=== PATIENT | female | born 1945 | race Caucasian/White ===

== ENCOUNTER → 2018-03-25 | Outpatient (CLI) | payer MEDICARE, OTHER ==
[~2018-03-25] MED LIST: Duoneb 2.5-0.5 M3 ML INH; FLUO.05TO TOP; GABA300 PO; LEVO750 PO; LISHYD1012 PO; LISI5 PO; METPRE4DP PO; SULF500A PO
== END | disposition home or self-care (01) ==
LOC: LAB EV 12:13 → LAB SHORT 12:13
DX: R07.0 Pain in throat (principal)
CPT/HCPCS: 87070

== ENCOUNTER 2019-07-15 11:23 | Day surgery (SDC) | payer MEDICARE, OTHER ==
[~2019-07-15] VITALS: Ht 167.6 cm; Wt 100.8 kg
[~2019-07-15 11:23] MED LIST changes: +ALLEGRA ALLERG180 MG PO; +BENZ100A PO; +FOLI1 PO; +Flonase 0.05% N16 GM; +HYDCHL25 PO; +LOSA25 PO; +TERB250 PO
== END 2019-07-15 14:30 | disposition home or self-care (01) ==
LOC: ORSCSDS 11:23
PROVIDERS: Internal Medicine Gastroenterology
PROC: 0DBH8ZX Excision of Cecum, Via Natural or Artificial Opening Endoscopic, Diagnostic (ICD-10-PCS; principal; 2019-07-15 12:45)
PROC: 0DBN8ZX Excision of Sigmoid Colon, Via Natural or Artificial Opening Endoscopic, Diagnostic (ICD-10-PCS; principal; 2019-07-15 12:45)
PROC: 0DBL8ZX Excision of Transverse Colon, Via Natural or Artificial Opening Endoscopic, Diagnostic (ICD-10-PCS; principal; 2019-07-15 12:45)
PROC: 0DBP8ZX Excision of Rectum, Via Natural or Artificial Opening Endoscopic, Diagnostic (ICD-10-PCS; principal; 2019-07-15 12:45)
PROC: 0DBE8ZX Excision of Large Intestine, Via Natural or Artificial Opening Endoscopic, Diagnostic (ICD-10-PCS; principal; 2019-07-15 12:45)
DX: K62.5 Hemorrhage of anus and rectum (principal); D12.0 Benign neoplasm of cecum; D12.3 Benign neoplasm of transverse colon; D12.5 Benign neoplasm of sigmoid colon; K62.1 Rectal polyp; K64.8 Other hemorrhoids; K64.4 Residual hemorrhoidal skin tags; K51.20 Ulcerative (chronic) proctitis without complications; I10 Essential (primary) hypertension; G47.33 Obstructive sleep apnea (adult) (pediatric); Z87.891 Personal history of nicotine dependence; E66.9 Obesity, unspecified; Z68.35 Body mass index [BMI] 35.0-35.9, adult; Z79.899 Other long term (current) drug therapy
CPT/HCPCS: 88305; J2704; J7120

== ENCOUNTER 2019-08-08 10:56 | Emergency (ER) | payer MEDICARE, OTHER ==
[~2019-08-08] VITALS: Ht 165.1 cm; Wt 108.9 kg
== END 2019-08-08 12:14 | disposition home or self-care (01) ==
LOC: ER 10:56
DX: S09.90XA Unspecified injury of head, initial encounter (principal); S43.401A Unspecified sprain of right shoulder joint, initial encounter; W07.XXXA Fall from chair, initial encounter; Z88.0 Allergy status to penicillin; Z88.1 Allergy status to other antibiotic agents; Z79.899 Other long term (current) drug therapy; I10 Essential (primary) hypertension; Z87.891 Personal history of nicotine dependence
CPT/HCPCS: 70450; 73030; 99284-25

== ENCOUNTER 2019-08-10 08:07 | Observation (INO) | payer MEDICARE, OTHER ==
[~2019-08-10] VITALS: Ht 165.1 cm; Wt 105.8 kg
[2019-08-10 08:27] LABS: BASOPHILS ABSOLUTE AUTO 0.07 K/mm3 (0.00-0.23); BASOPHILS PERCENT AUTO 1 % (0-2); EOSINOPHILS ABSOLUTE AUTO 0.08 K/mm3 (0.00-0.68); EOSINOPHILS PERCENT AUTO 1 % (0-6); Hematocrit 41.8 % (33.0-51.0); Hemoglobin 13.6 g/dL (11.5-16.0); IMMATURE GRAN ABSOLUTE AUTO 0.17 K/mm3 (0.00-0.10); IMMATURE GRAN PERCENT AUTO 1 % (0-1); LYMPHOCYTES PERCENT AUTO 13 % (21-46); MONOCYTES ABSOLUTE AUTO 0.71 K/mm3 (0.16-1.47); MONOCYTES PERCENT AUTO 6 % (4-13); Mean Corpuscular HGB 30.7 pg (26.0-34.0); Mean Corpuscular HGB Conc 32.5 g/dL (31.5-36.5); Mean Corpuscular Volume 94 fL (80-100); Mean Platelet Volume 9.9 fL (9.1-12.4); NEUTROPHILS ABSOLUTE AUTO 10.15 K/mm3 (1.96-9.15); NEUTROPHILS PERCENT AUTO 79 % (41-73); Platelet Count 235 K/mm3 (150-400); RDW Coefficient Variation 12.9 % (11.7-14.2); RDW Standard Deviation 45.1 fL (35.1-46.3); Red Blood Cell Count 4.43 M/mm3 (3.80-5.20); White Blood Cell Count 12.88 K/mm3 (4.00-11.30)
[2019-08-10 08:45] LABS: Alanine Aminotransfer (ALT/SGP 16 U/L (12-78); Albumin, Blood 3.8 g/dL (3.4-5.0); Alk Phos 129 U/L (50-136); Anion Gap 12 mmol/L (6-16); Aspartate Aminotrans (AST/SGOT 33 U/L (12-37); Bilirubin, Total 0.6 mg/dL (0.1-1.0); Blood Urea Nitrogen 14 mg/dL (8-24); Bun/Creatinine Ratio 21.1 (12.0-20.0); CO2, Blood 19 mmol/L (21-32); Calcium, Blood 9.4 mg/dL (8.5-10.1); Chloride, Blood 109 mmol/L (98-108); Creatinine, Blood 0.66 mg/dL (0.40-1.00); Globulin, Blood 3.7 g/dL (2.2-4.0); Glomerular Filtration Rate >60 (60-); Glucose, Blood 216 mg/dL (70-99); Potassium, Blood 3.4 mmol/L (3.5-5.5); Sodium, Blood 140 mmol/L (136-145); Total Protein, Blood 7.5 g/dL (6.4-8.2)
[2019-08-10 08:56] LABS: International Normalized Ratio 0.97; Prothrombin Time Results 10.3 Sec (9.7-11.5)
[2019-08-10] MEDS ORDERED: TERB250 PO (09:19)
[2019-08-10] MEDS ORDERED: TIZA4 PO (09:20)
[2019-08-10] MEDS ORDERED: Azulfidine500 M1 PO (10:45)
[2019-08-10] MEDS ORDERED: Neilmed Sinus1 EAC2 (10:54)
--- NOTE | 2019-08-10 11:54 | NUR ---
PT BACK FROM MRI.
--- NOTE | 2019-08-10 12:18 | NUR ---
PT ARRIVED TO THE UNIT VIA GURNEY. PT EXPERIENCING VOMITING WITH ANY MOVMENT. PT STATED FEELING CHILLED AND WAS SHAKING WHEN SHE ARRIVED. PROVIDED WARM BLANKETS. FAMILY AT BEDSIDE. PT AND FAMIL ORIENTATED TO ROOM, CALL LIGHT WITHIN REACH.
--- NOTE | 2019-08-10 14:56 | NUR ---
LACTIC ACID WAS CALLED IN AT CRITICAL HIGH OF 3.5. LET CHARGE NURSE CONSTANZA MARIA KNOW. CHECKED VITALS, DID BLADDER SCAN. CALLED DR. ELLIOTT TO INFORM OF LACTIC ACID LEVEL AND OF POTASSIUM LEVEL OF 3.5, AND VITAL SIGN. HE GAVE TELEPHONE ORDER FOR 500 ML FLUID BOLIS, THEN 1 L AT 150ML/HR, FOLLOWED BY 100ML/HR THERE AFTER. PT IS RESTING COMFORTABLY WITH NO COMPLAINTS AT THIS TIME.
[2019-08-10 15:40] LABS: Source, Urine Voided
[2019-08-10 15:43] LABS: Bilirubin, Urine Neg (Neg); Blood, Urine 1+ (Neg); Glucose Qualitative, Urine 3+ (Neg); Ketones, Urine 3+ (Neg); Leukocyte Esterase, Urine 1+ (Neg); Nitrite, Urine Neg (Neg); Protein, Urine 2+ (Neg); Urobilinogen, Urine NORM (Normal)
[2019-08-10 15:58] LABS: Appearance, Urine Hazy (Clear); Color, Urine Amber (P-Yellow)
[2019-08-10 16:00] LABS: Bacteria Few /hpf; Squamous Epithelial Cells Mod /hpf (Few)
--- NOTE | 2019-08-10 18:27 | NUR ---
PT ARRIVED TO THE FLOOR WITH NAUSEA AND VOMITING, PT COMPLAINED OF CHILLS AND WAS SHAKING. GOT PT UP TO THE BEDSIDE CAMMODE, AFTERWARDS SHE BEGAN VOMITING. LATER IN THE SHIFT PT STOPPED SHAKING AND SAID THE NAUSEA WAS STARTING TO GO AWAY. PT GOT UP AND WENT TO THE RESTROOM, WITHOUT ANY NAUSEA.
--- NOTE | 2019-08-11 05:00 | NUR ---
SHIFT SUMMARY: A/O, VSS, t/f and amb w/ SBA. Denies dizziness, denies vision disturbances. Reports she is feeling baseline. CPAP on all night. Seemed to sleep well. Neuro check WNL. No acute changes. Call light within reach.
[2019-08-11 05:53] LABS: BASOPHILS ABSOLUTE AUTO 0.04 K/mm3 (0.00-0.23); BASOPHILS PERCENT AUTO 0 % (0-2); EOSINOPHILS ABSOLUTE AUTO 0.09 K/mm3 (0.00-0.68); EOSINOPHILS PERCENT AUTO 1 % (0-6); Hematocrit 35.9 % (33.0-51.0); Hemoglobin 11.6 g/dL (11.5-16.0); IMMATURE GRAN ABSOLUTE AUTO 0.06 K/mm3 (0.00-0.10); IMMATURE GRAN PERCENT AUTO 1 % (0-1); LYMPHOCYTES PERCENT AUTO 16 % (21-46); MONOCYTES ABSOLUTE AUTO 0.67 K/mm3 (0.16-1.47); MONOCYTES PERCENT AUTO 7 % (4-13); Mean Corpuscular HGB 30.7 pg (26.0-34.0); Mean Corpuscular HGB Conc 32.3 g/dL (31.5-36.5); Mean Corpuscular Volume 95 fL (80-100); NEUTROPHILS ABSOLUTE AUTO 6.98 K/mm3 (1.96-9.15); NEUTROPHILS PERCENT AUTO 75 % (41-73); Platelet Count 215 K/mm3 (150-400); RDW Coefficient Variation 13.2 % (11.7-14.2); RDW Standard Deviation 45.2 fL (35.1-46.3); Red Blood Cell Count 3.78 M/mm3 (3.80-5.20); White Blood Cell Count 9.34 K/mm3 (4.00-11.30)
[2019-08-11 06:20] LABS: Alanine Aminotransfer (ALT/SGP 14 U/L (12-78); Albumin, Blood 3.2 g/dL (3.4-5.0); Alk Phos 107 U/L (50-136); Anion Gap 5 mmol/L (6-16); Aspartate Aminotrans (AST/SGOT 21 U/L (12-37); Bilirubin, Total 0.4 mg/dL (0.1-1.0); Blood Urea Nitrogen 11 mg/dL (8-24); Bun/Creatinine Ratio 15.4 (12.0-20.0); CO2, Blood 25 mmol/L (21-32); Calcium, Blood 8.7 mg/dL (8.5-10.1); Chloride, Blood 113 mmol/L (98-108); Creatinine, Blood 0.71 mg/dL (0.40-1.00); Globulin, Blood 3.2 g/dL (2.2-4.0); Glomerular Filtration Rate >60 (60-); Glucose, Blood 110 mg/dL (70-99); Potassium, Blood 3.7 mmol/L (3.5-5.5); Sodium, Blood 143 mmol/L (136-145); Total Protein, Blood 6.4 g/dL (6.4-8.2)
[2019-08-11] MEDS ORDERED: MOTION RELIEF25 MG PO (11:41)
[2019-08-11] MEDS ORDERED: ONDA4ODT PO (11:42)
--- NOTE | 2019-08-11 13:38 | NUR ---
DISCHARGE INSTRUCTIONS REVIEWED WITH PT. IV X2 DC'D INTACT. PT DC'D HOME WITH SPOUSE AND DAUGHTER AT 1310.
== END 2019-08-11 13:10 | disposition home or self-care (01) ==
LOC: ER 08:07 → MEDS 08:08 → ENPENDDIS 08-11 11:42 → MEDS 08-11 13:10
PROVIDERS: Emergency Medicine; ADMIT Family Medicine
DX: H81.49 Vertigo of central origin, unspecified ear (principal); R11.2 Nausea with vomiting, unspecified; E78.5 Hyperlipidemia, unspecified; I10 Essential (primary) hypertension; G47.30 Sleep apnea, unspecified; E66.01 Morbid (severe) obesity due to excess calories; Z88.1 Allergy status to other antibiotic agents; Z88.0 Allergy status to penicillin; Z79.899 Other long term (current) drug therapy; Z99.89 Dependence on other enabling machines and devices; W22.8XXA Striking against or struck by other objects, initial encounter; Y92.000 Kitchen of unspecified non-institutional (private) residence as the place of occurrence of the external cause
CPT/HCPCS: 36415; 70450; 70551; 71045; 80053; 81001; 82947; 83036; 83605; 85025; 85610; 85730; 87086; 93005; 93010; 94762; 96361; 96365; 96372; 96374; 96375; 97110; 97116; 97162; 97530; 99285-25; G0378; J1650; J1956; J2405; J3360; J3480; J7030

== ENCOUNTER 2021-07-17 18:59 | Emergency (ER) | payer MEDICARE, OTHER ==
[~2021-07-17] VITALS: Ht 165.1 cm; Wt 61.2 kg
[~2021-07-17 18:59] MED LIST changes: +Azulfidine500 M1 PO; +MOTION RELIEF25 MG PO; +Neilmed Sinus1 EAC2; +ONDA4ODT PO; +TIZA4 PO
[2021-07-17] MEDS ORDERED: CYCL10 PO (19:16)
[2021-07-17] MEDS ORDERED: ROSU10TA PO (19:18)
[2021-07-17] MEDS ORDERED: ZYRTEC10 M2 PO (19:18)
[2021-07-17] MEDS ORDERED: Ativan1 MG SL (21:20)
== END 2021-07-17 21:50 | disposition home or self-care (01) ==
LOC: ER 18:59
DX: S16.1XXA Strain of muscle, fascia and tendon at neck level, initial encounter (principal); I10 Essential (primary) hypertension; Z88.0 Allergy status to penicillin; Z88.1 Allergy status to other antibiotic agents; Z79.899 Other long term (current) drug therapy; X58.XXXA Exposure to other specified factors, initial encounter
CPT/HCPCS: 84484; 93005; 93010; 96372; 99284-25; A9270; J1885

== ENCOUNTER 2021-12-26 09:00 | Emergency (ER) | payer MEDICARE, OTHER ==
[~2021-12-26] VITALS: Ht 162.6 cm; Wt 108.9 kg
[~2021-12-26 09:00] MED LIST changes: +Ativan1 MG SL; +CYCL10 PO; +ROSU10TA PO; +ZYRTEC10 M2 PO
[2021-12-26 09:34] LABS: BASOPHILS ABSOLUTE AUTO 0.07 K/mm3 (0.00-0.23); BASOPHILS PERCENT AUTO 0 % (0-2); EOSINOPHILS ABSOLUTE AUTO 0.02 K/mm3 (0.00-0.68); EOSINOPHILS PERCENT AUTO 0 % (0-6); Hematocrit 37.7 % (33.0-51.0); Hemoglobin 11.7 g/dL (11.5-16.0); IMMATURE GRAN ABSOLUTE AUTO 0.22 K/mm3 (0.00-0.10); IMMATURE GRAN PERCENT AUTO 1 % (0-1); LYMPHOCYTES ABSOLUTE AUTO 1.14 K/mm3 (0.84-5.20); LYMPHOCYTES PERCENT AUTO 7 % (21-46); MONOCYTES ABSOLUTE AUTO 0.83 K/mm3 (0.16-1.47); MONOCYTES PERCENT AUTO 5 % (4-13); Mean Corpuscular HGB 29.8 pg (26.0-34.0); Mean Corpuscular Volume 96 fL (80-100); Mean Platelet Volume 10.4 fL (9.1-12.4); NEUTROPHILS ABSOLUTE AUTO 13.44 K/mm3 (1.96-9.15); NEUTROPHILS PERCENT AUTO 86 % (41-73); Platelet Count 229 K/mm3 (150-400); RDW Coefficient Variation 13.2 % (11.7-14.2); RDW Standard Deviation 47.3 fL (35.1-46.3); Red Blood Cell Count 3.93 M/mm3 (3.80-5.20); White Blood Cell Count 15.72 K/mm3 (4.00-11.30)
[2021-12-26 09:43] LABS: Alanine Aminotransfer (ALT/SGP 24 U/L (12-78); Albumin, Blood 3.6 g/dL (3.4-5.0); Albumin/Globulin Ratio 1.1 (0.8-1.8); Alk Phos 129 U/L (50-136); Anion Gap 7 mmol/L (6-16); Aspartate Aminotrans (AST/SGOT 22 U/L (12-37); Bilirubin, Total 0.3 mg/dL (0.1-1.0); Blood Urea Nitrogen 18 mg/dL (8-24); Bun/Creatinine Ratio 25.9 (12.0-20.0); CO2, Blood 23 mmol/L (21-32); Calcium, Blood 8.6 mg/dL (8.5-10.1); Chloride, Blood 107 mmol/L (98-108); Globulin, Blood 3.3 g/dL (2.2-4.0); Glomerular Filtration Rate >60 (60-); Glucose, Blood 235 mg/dL (70-99); Potassium, Blood 3.6 mmol/L (3.5-5.5); Sodium, Blood 137 mmol/L (136-145); Total Protein, Blood 6.9 g/dL (6.4-8.2)
[2021-12-26] MEDS ORDERED: METO5A PO (13:37)
== END 2021-12-26 13:44 | disposition home or self-care (01) ==
LOC: ER 09:00
PROVIDERS: Student in an Organized Health Care Education/Training Program
DX: R42 Dizziness and giddiness (principal); R11.2 Nausea with vomiting, unspecified; R19.7 Diarrhea, unspecified; I10 Essential (primary) hypertension; E78.5 Hyperlipidemia, unspecified; E66.01 Morbid (severe) obesity due to excess calories; Z87.891 Personal history of nicotine dependence; Z88.0 Allergy status to penicillin; Z88.1 Allergy status to other antibiotic agents; Z79.899 Other long term (current) drug therapy
CPT/HCPCS: 80053; 84484; 85025; 93005; 93010; 96374; 99284-25; J2765; J7030

== ENCOUNTER 2024-06-30 10:51 | Day surgery (SDC) | payer MEDICARE, OTHER ==
[~2024-06-30] VITALS: Ht 160 cm; Wt 99.7 kg
[2024-06-30] VITALS (16 sets, daily range): BP systolic 113–157; BP diastolic 47–76
[~2024-06-30 10:51] MED LIST changes: -Azulfidine500 M1 PO; +Crestor40 MG PO; +DICLOFENAC SOD100 GM; +MELO7.5; +METO5A PO; +OXYB5 PO; +SULF500 PO; +VITAMIN D325 MC3 PO
[2024-06-30] MEDS ORDERED: Chlorhexidine Mouth Care 15 ML UDC MT SCH (11:20)
[2024-06-30] MEDS ORDERED: Ropivacaine 0.5% HCl/Pf 123.125 MG,EPINEPHrine HCL 0.25 MG,Ketorolac Tromethamine 15 MG... INFIL SCH (11:20)
[2024-06-30] MEDS ORDERED: Acetaminophen 500 MG Tab PO SCH ×2 (11:20→16:00)
[2024-06-30] MEDS ORDERED: Vancomycin HCL 1,000 MG in NS 250 ML IV SCH (11:20)
[2024-06-30] MEDS ORDERED: Lactated Ringer's 1,000 ML IV SCH ×2 (11:20→12:35)
[2024-06-30] MEDS ORDERED: OxyCODONE HCL 10 MG TABCR PO SCH (11:20)
[2024-06-30] MEDS ORDERED: Clindamycin 900mg in D5W 50ML 50 ML IV SCH ×2 (11:25→21:00)
[2024-06-30] MEDS ORDERED: Tranexamic Acid 100 ML IV SCH (11:26)
[2024-06-30] MEDS ORDERED: Voltaren100 GM TOP ×2 (11:48)
--- NOTE | 2024-06-30 12:28 | NUR ---
History, Chart, Medications and Allergies reviewed before start of procedure. Patient up to Ambulate independently. Gait steady with personal cane. Pre-Op teaching done. Pt verbalizes understanding. Patient confirms NPO status and agrees with scheduled surgery. Patient reports completing Chlorhexadine shower X2 prior to admission to hospital. Surgical site prepped with 2% Chlorhexidine cloth wipe. Lungs clear T/O to Auscultation. Patient States Post-Procedure ride home has been arranged.
[2024-06-30] MEDS ORDERED: HYDROmorphone HCl/Pf 1MG SYR IV PRN (12:35)
[2024-06-30] MEDS ORDERED: Ondansetron HCl 2 MG / ML 2ML Vial IV PRN (12:40)
[2024-06-30] MEDS ORDERED: Magnesium Hydroxide Conc 10 ML UDC PO PRN (12:40)
[2024-06-30] MEDS ORDERED: Promethazine HCl 25 MG Tab PO PRN (12:40)
[2024-06-30] MEDS ORDERED: Metoclopramide HCl 5MG / ML 2ML Vial IV PRN (12:40)
[2024-06-30] MEDS ORDERED: OxyCODONE HCL 5 MG TAB PO PRN ×2 (12:40)
[2024-06-30] MEDS ORDERED: propofoL 150 ML IV ONE (12:44)
[2024-06-30] MEDS ORDERED: DiphenhydrAMINE HCL 25 MG Cap PO PRN (12:45)
[2024-06-30] MEDS ORDERED: Bisacodyl 10 MG Supp PR PRN (12:45)
[2024-06-30] MEDS ORDERED: Vancomycin HCl 1000 MG ADDvantage ONE (12:50)
[2024-06-30] MEDS ORDERED: Ketorolac Tromethamine 30mg Vial ONE (16:08)
--- NOTE | 2024-06-30 16:54 | NUR ---
PT ARRIVED TO UNIT AT APROX 1650 FROM PACU. PT IS WIGGLING TOES, REPORTS "SOME SENSATION IN BLE" DENIES PAIN AT THIS TIME. VSS UPON ARRIVAL TO UNIT. PT GIVEN CLEAR LIQUIDS AND WILL ADVANCE TOLERATED.
[2024-06-30] MEDS ORDERED: Ketorolac Tromethamine 15mg Vial IV SCH (18:00)
--- NOTE | 2024-06-30 19:28 | NUR ---
SHIFT SUMMARY POD0 R TKA, A/OX4, VSS, TOLERATING PO, MOVING IN BED BUT HAS NOT WORKED WITH THERAPY, SOME RESIDUAL NUMBNESS IN HER FEET STILL, NO POST OP VOID YET. PAIN WELL MANAGED. DRESSING C/D/I. NO ACUTE EVENTS THIS SHIFT, CALL LIGHT IN REACH.
[2024-06-30] MEDS ORDERED: Rosuvastatin Calcium 10 MG Tab PO SCH (21:00)
[2024-06-30] MEDS ORDERED: Gabapentin 300 MG Cap PO SCH (21:00)
[2024-06-30] MEDS ORDERED: Docusate Sodium 100 MG Cap PO SCH (21:00)
[2024-06-30] MEDS ORDERED: Losartan Potassium 50 MG Tab PO SCH (21:00)
[2024-07-01] MEDS ORDERED: Vancomycin HCL 1,000 MG in NS 250 ML IV SCH
[2024-07-01] MEDS ORDERED: Vancomycin HCL 1,250 MG in NS 250 ML IV SCH
[2024-07-01 05:07] LABS: BASOPHILS ABSOLUTE AUTO 0.03 K/mm3 (0.00-0.23); BASOPHILS PERCENT AUTO 0 % (0-2); EOSINOPHILS PERCENT AUTO 0 % (0-6); Hematocrit 28.3 % (33.0-51.0); Hemoglobin 9.1 g/dL (11.5-16.0); IMMATURE GRAN ABSOLUTE AUTO 0.11 K/mm3 (0.00-0.10); IMMATURE GRAN PERCENT AUTO 1 % (0-1); LYMPHOCYTES PERCENT AUTO 6 % (21-46); MONOCYTES ABSOLUTE AUTO 1.04 K/mm3 (0.16-1.47); MONOCYTES PERCENT AUTO 7 % (4-13); Mean Corpuscular HGB Conc 32.2 g/dL (31.5-36.5); Mean Corpuscular Volume 93 fL (80-100); Mean Platelet Volume 9.4 fL (9.1-12.4); NEUTROPHILS ABSOLUTE AUTO 13.04 K/mm3 (1.96-9.15); NEUTROPHILS PERCENT AUTO 86 % (41-73); Platelet Count 228 K/mm3 (150-400); RDW Standard Deviation 44.1 fL (35.1-46.3); Red Blood Cell Count 3.03 M/mm3 (3.80-5.20); White Blood Cell Count 15.12 K/mm3 (4.00-11.30)
--- NOTE | 2024-07-01 05:22 | NUR ---
SHIFT SUMMARY POD 1 L TKA PT RESTED T/O NIGHT. PAIN MANAGED PER EMAR. TOLERATING PO INTAKE, VOIDING. PT AMB TO THE BATHROOM W/ 1P ASST, FWW AND GB. PT HAS BULKY DRESSING TO L KNEE, C/D/I. VSS. PLAN TO WORK WITH THERAPY AND THEN D/C HOME. NO OTHER CONCERNS AT THIS TIME, CALL LIGHT WITHIN REACH
[2024-07-01 05:30] LABS: Bun/Creatinine Ratio 18.8 (12.0-20.0); Calcium, Blood 8.4 mg/dL (8.5-10.1); Creatinine, Blood 1.38 mg/dL (0.40-1.00); Magnesium, Blood 2.2 mg/dL (1.6-2.4); Potassium, Blood 4.2 mmol/L (3.5-5.5)
[2024-07-01 05:32] VITALS: BP 113/53
[2024-07-01 07:00] VITALS: BP 110/43
[2024-07-01 07:02] VITALS: BP 102/43
[2024-07-01] MEDS ORDERED: Trimethoprim/Sulfamethoxazole DS Tab PO SCH (09:00)
[2024-07-01] MEDS ORDERED: Folic Acid 1 MG TAB PO SCH (09:00)
[2024-07-01] MEDS ORDERED: Cholecalciferol 1000 Unit Tablet (=25MCG) PO SCH (09:00)
[2024-07-01] MEDS ORDERED: HydroCHLOROthiazide 25 mg Tab PO SCH (09:00)
[2024-07-01] MEDS ORDERED: SulfASALazine 500 MG Tab PO SCH (09:00)
[2024-07-01] MEDS ORDERED: oxyBUTYnin chloride 5 MG TAB PO SCH (09:00)
[2024-07-01] MEDS ORDERED: Aspirin 81 MG Chew PO SCH (09:00)
[2024-07-01] MEDS ORDERED: Loratadine 10 MG Tab PO SCH (09:00)
[2024-07-01] MEDS ORDERED: OXYC5 PO ×2 (09:15)
[2024-07-01] MEDS ORDERED: ASPI81CH PO ×2 (09:15)
[2024-07-01] MEDS ORDERED: SULTRIDS PO ×2 (09:16)
[2024-07-01] MEDS ORDERED: PROM25 PO ×2 (09:16)
--- NOTE | 2024-07-01 10:34 | NUR ---
DISCHARGE SUMMARY POD1 L TKA, A/OX4, VSS, TOLERATING PO, PAIN WELL MANAGED, AMBULATING SBA, DRESSING CHANGED THIS AM AT BEDIDE BY ORTHO MD, CARSON PLACED THIS AM STILL C/D/I AT TIME OF DEPARTURE, ADDITIONAL DRESSINGS PROVIDED. DISCUSSED DISCHARGE INSTRUCTIONS WITH HER AND HER DAUGHTER INCLUDING HOME CARE, MEDICATIONOS, AND FOLLOW UP APPOINTMENTS, REMOVED IV ACCESS, PACKED UP PERSONAL POSSESSIONOS, ESCORTED OUT VIA WC TO PRIVATE AUTO TO GO HOME
== END 2024-07-01 10:20 | disposition home or self-care (01) ==
LOC: ORSCMMR 10:51 → ORD 14:00 → ORSCMMR 14:00 → SURS 16:32 → ORSCMMR 07-01 10:20
PROVIDERS: Orthopaedic Surgery
PROC: 0SRD0JA Replacement of Left Knee Joint with Synthetic Substitute, Uncemented, Open Approach (ICD-10-PCS; principal; 2024-06-30 14:00)
DX: M17.12 Unilateral primary osteoarthritis, left knee (principal); Z87.891 Personal history of nicotine dependence; Z79.899 Other long term (current) drug therapy; Z79.82 Long term (current) use of aspirin; G47.33 Obstructive sleep apnea (adult) (pediatric); I10 Essential (primary) hypertension; E78.5 Hyperlipidemia, unspecified; J45.909 Unspecified asthma, uncomplicated; Z68.37 Body mass index [BMI] 37.0-37.9, adult
CPT/HCPCS: 36415; 73560-LT; 80048; 83735; 85025; 97110; 97116; 97161; 97530; A9270; C1713; C1776; J0171; J0735; J1885; J2704; J2795; J3370; J7050; J7120

== ENCOUNTER 2024-07-10 01:02 | Emergency (ER) | payer MEDICARE, OTHER ==
[~2024-07-10] VITALS: Ht 157.5 cm; Wt 57.6 kg
[~2024-07-10 01:02] MED LIST changes: +ASPI81CH PO; +OXYC5 PO; +PROM25 PO; +SULTRIDS PO; +Voltaren100 GM TOP
[2024-07-10 01:24] LABS: BASOPHILS ABSOLUTE AUTO 0.08 K/mm3 (0.00-0.23); BASOPHILS PERCENT AUTO 1 % (0-2); EOSINOPHILS ABSOLUTE AUTO 0.06 K/mm3 (0.00-0.68); EOSINOPHILS PERCENT AUTO 1 % (0-6); Hematocrit 26.9 % (33.0-51.0); Hemoglobin 9.2 g/dL (11.5-16.0); IMMATURE GRAN ABSOLUTE AUTO 0.36 K/mm3 (0.00-0.10); IMMATURE GRAN PERCENT AUTO 4 % (0-1); LYMPHOCYTES ABSOLUTE AUTO 1.24 K/mm3 (0.84-5.20); LYMPHOCYTES PERCENT AUTO 12 % (21-46); MONOCYTES ABSOLUTE AUTO 0.89 K/mm3 (0.16-1.47); MONOCYTES PERCENT AUTO 9 % (4-13); Mean Corpuscular HGB 30.3 pg (26.0-34.0); Mean Corpuscular HGB Conc 34.2 g/dL (31.5-36.5); Mean Corpuscular Volume 89 fL (80-100); Mean Platelet Volume 8.9 fL (9.1-12.4); NEUTROPHILS ABSOLUTE AUTO 7.58 K/mm3 (1.96-9.15); NEUTROPHILS PERCENT AUTO 74 % (41-73); Platelet Count 354 K/mm3 (150-400); RDW Coefficient Variation 13.5 % (11.7-14.2); RDW Standard Deviation 43.4 fL (35.1-46.3); Red Blood Cell Count 3.04 M/mm3 (3.80-5.20); White Blood Cell Count 10.21 K/mm3 (4.00-11.30)
[2024-07-10 01:33] LABS: Albumin, Blood 3.3 g/dL (3.4-5.0); Albumin/Globulin Ratio 0.9 (0.8-1.8); Bilirubin, Total 0.5 mg/dL (0.1-1.0); Bun/Creatinine Ratio 19.5 (12.0-20.0); Calcium, Blood 9.8 mg/dL (8.5-10.1); Creatinine, Blood 1.59 mg/dL (0.40-1.00); Globulin, Blood 3.7 g/dL (2.2-4.0); Potassium, Blood 4.3 mmol/L (3.5-5.5)
[2024-07-10] MEDS ORDERED: NS 1,000 ML IV SCH (02:35)
[2024-07-10] MEDS ORDERED: Mag Hydrox/AL Hydrox/Simeth 30 ML UDC PO ONE (03:40)
[2024-07-10] MEDS ORDERED: Lidocaine 2% Viscous Soln 15 ML UDC PO ONE (03:40)
[2024-07-10] MEDS ORDERED: Ondansetron HCl 2 MG / ML 2ML Vial ONE (03:43)
[2024-07-10] MEDS ORDERED: Droperidol 5 mg/2 ml Vial IV ONE (03:55)
[2024-07-10 03:58] LABS: Magnesium, Blood 2.1 mg/dL (1.6-2.4)
[2024-07-10] MEDS ORDERED: Dicyclomine HCl 10 MG/ML 2ML Amp IM ONE (04:10)
[2024-07-10] MEDS ORDERED: Lactulose 200 GM/300 ML Enema 300ML BTL PR ONE (06:00)
[2024-07-10 06:28] VITALS: BP 136/70
[2024-07-10] MEDS ORDERED: Bisacodyl 10 MG Supp PR ONE (07:30)
== END 2024-07-10 08:10 | disposition home or self-care (01) ==
LOC: ER 01:02
PROVIDERS: Student in an Organized Health Care Education/Training Program
DX: R11.2 Nausea with vomiting, unspecified (principal); K59.00 Constipation, unspecified; Z88.0 Allergy status to penicillin; Z88.1 Allergy status to other antibiotic agents; Z79.899 Other long term (current) drug therapy; I10 Essential (primary) hypertension; E78.5 Hyperlipidemia, unspecified; G47.30 Sleep apnea, unspecified; Z87.891 Personal history of nicotine dependence
CPT/HCPCS: 74022; 74176; 80053; 83690; 83735; 84484; 85025; 93005; 93010; 96361; 96372-59; 96374; 96375; 99285-25; A9270; J0500; J1790; J2405; J7030

== ENCOUNTER 2024-08-18 11:00 | Inpatient (IN) | payer MEDICARE, OTHER ==
[~2024-08-18] VITALS: Ht 157.5 cm; Wt 96.3 kg
[2024-08-18] VITALS (14 sets, daily range): BP systolic 99–159; BP diastolic 47–65
[~2024-08-18 11:00] MED LIST changes: +Acetaminophen 500 MG Tab PO SCH; +CeFAZolin Sodium 2,000 MG in NS 100 ML IV SCH; +Chlorhexidine Mouth Care 15 ML UDC MT SCH; -Crestor40 MG PO; -HYDCHL25 PO; +HYDCHL50 PO; -LOSA25 PO; +LOSARTAN POTAS100 M1 PO; +Lactated Ringer's 1,000 ML IV SCH; -OXYB5 PO; +OxyCODONE HCL 10 MG TABCR PO SCH; +Oxybutynin Chlor5 M1 PO; +ROSUVASTATIN CA10 MG PO; +Ropivacaine 0.5% HCl/Pf 123.125 MG,EPINEPHrine HCL 0.25 MG,Ketorolac Tromethamine 15 MG... INFIL SCH; +Vancomycin HCL 1,000 MG in NS 250 ML IV SCH
[2024-08-18] MEDS ORDERED: Tranexamic Acid 100 ML IV SCH (11:09)
--- NOTE | 2024-08-18 12:09 | NUR ---
History, Chart, Medications and Allergies reviewed before start of procedure. Pre-Op teaching done. Pt verbalizes understanding. Patient confirms NPO status and agrees with scheduled surgery. PT BELONGINGS PLACED IN BAG UNDER BED. PT WALKER GIVEN TO DAUGHTER AT BS TO TAKE HOME.
[2024-08-18] MEDS ORDERED: CeFAZolin Sodium 2,000 MG in NS 100 ML IV SCH (12:20)
[2024-08-18] MEDS ORDERED: FentaNYL Citrate 50 MCG/ML 2 ML Injection ONE (14:04)
[2024-08-18] MEDS ORDERED: OxyCODONE HCL 5 MG TAB PO PRN ×2 (14:05)
[2024-08-18] MEDS ORDERED: Metoclopramide HCl 5MG / ML 2ML Vial IV PRN (14:05)
[2024-08-18] MEDS ORDERED: Ondansetron HCl 2 MG / ML 2ML Vial IV PRN (14:05)
[2024-08-18] MEDS ORDERED: Promethazine HCl 25 MG Tab PO PRN (14:10)
[2024-08-18] MEDS ORDERED: Lactated Ringer's 1,000 ML IV SCH (14:10)
[2024-08-18] MEDS ORDERED: Magnesium Hydroxide Conc 10 ML UDC PO PRN (14:10)
[2024-08-18] MEDS ORDERED: HYDROmorphone HCl/Pf 1MG SYR IV PRN (14:10)
[2024-08-18] MEDS ORDERED: Bisacodyl 10 MG Supp PR PRN (14:10)
[2024-08-18] MEDS ORDERED: FLU VACC TS2024-25(6MOS UP)/PF 45 MCG/0.5 ML SYRINGE IM SCH (14:15)
[2024-08-18] MEDS ORDERED: DiphenhydrAMINE HCL 25 MG Cap PO PRN (14:15)
[2024-08-18] MEDS ORDERED: EpiNEPhrine 1 MG/1 ML 1ML Vial ONE (14:17)
[2024-08-18] MEDS ORDERED: Phenylephrine HCl 100 MCG/ML-NS 10MLSYR (1MG/10ML) ONE (14:33)
[2024-08-18] MEDS ORDERED: ePHEDrine Sulfate 50 MG/ML 1ML Injection ONE (14:33)
[2024-08-18] MEDS ORDERED: Naloxone HCl 0.4MG / ML 1ML Vial ONE (14:51)
[2024-08-18] MEDS ORDERED: Midazolam HCl 1MG / ML 2ML Vial ONE ×2 (14:53→15:45)
[2024-08-18] MEDS ORDERED: Clindamycin 900mg in D5W 50ML 50 ML IV SCH (14:55)
--- NOTE | 2024-08-18 15:54 | NUR ---
08/18/24 1554 Khang Cordova 2G STARTED AT 1415 AND STOPPED RIGHT AWAY FOR POSSIBLE REACTION PER DR. HELM
[2024-08-18] MEDS ORDERED: Acetaminophen 500 MG Tab PO SCH (16:00)
[2024-08-18] MEDS ORDERED: Vancomycin HCl 1000 MG ADDvantage ONE (16:09)
[2024-08-18] MEDS ORDERED: Ketorolac Tromethamine 30mg Vial ONE (17:24)
[2024-08-18] MEDS ORDERED: Ketorolac Tromethamine 15mg Vial IV SCH (18:00)
[2024-08-18] MEDS ORDERED: Percocet 5-3251 EACH PO (18:19)
[2024-08-18] MEDS ORDERED: SULFAMETHOXAZO1 EAC1 PO (18:19)
[2024-08-18] MEDS ORDERED: [UNRECOGNIZED DRUG - CODE] PO (19:10)
--- NOTE | 2024-08-18 19:39 | NUR ---
SHIFT SUMMARY POD0 L TKA REVISION, A/OX4, VSS, TOLERATING PO, DENIES PAIN BUT WAS ONLY OUT ON THE FLOOR FOR ABOUT AN HOUR BEFORE SHIFT CHANGE. DISCUSSED PLAN OF CARE WITH HER AND TOMORROW. NO ACUTE EVENTS THIS SHIFT. CALL LIGHT IN REACH.
[2024-08-18] MEDS ORDERED: SulfASALazine 500 MG Tab PO SCH (20:00)
[2024-08-18] MEDS ORDERED: Docusate Sodium 100 MG Cap PO SCH (21:00)
[2024-08-18] MEDS ORDERED: Losartan Potassium 50 MG Tab PO SCH (21:00)
[2024-08-18] MEDS ORDERED: Gabapentin 300 MG Cap PO SCH (21:00)
[2024-08-18] MEDS ORDERED: Rosuvastatin Calcium 10 MG Tab PO SCH (21:00)
[2024-08-19] MEDS ORDERED: Clindamycin 900mg in D5W 50ML 50 ML IV SCH
[2024-08-19] MEDS ORDERED: Vancomycin HCL 1,000 MG in NS 250 ML IV SCH
[2024-08-19 04:06] VITALS: BP 123/51
[2024-08-19 04:32] LABS: BASOPHILS ABSOLUTE AUTO 0.04 K/mm3 (0.00-0.23); BASOPHILS PERCENT AUTO 0 % (0-2); EOSINOPHILS ABSOLUTE AUTO 0.01 K/mm3 (0.00-0.68); EOSINOPHILS PERCENT AUTO 0 % (0-6); Hematocrit 26.1 % (33.0-51.0); Hemoglobin 8.4 g/dL (11.5-16.0); IMMATURE GRAN ABSOLUTE AUTO 0.07 K/mm3 (0.00-0.10); IMMATURE GRAN PERCENT AUTO 1 % (0-1); LYMPHOCYTES ABSOLUTE AUTO 0.86 K/mm3 (0.84-5.20); LYMPHOCYTES PERCENT AUTO 7 % (21-46); MONOCYTES ABSOLUTE AUTO 0.75 K/mm3 (0.16-1.47); MONOCYTES PERCENT AUTO 6 % (4-13); Mean Corpuscular HGB 28.5 pg (26.0-34.0); Mean Corpuscular HGB Conc 32.2 g/dL (31.5-36.5); Mean Corpuscular Volume 89 fL (80-100); Mean Platelet Volume 9.7 fL (9.1-12.4); NEUTROPHILS ABSOLUTE AUTO 10.32 K/mm3 (1.96-9.15); NEUTROPHILS PERCENT AUTO 86 % (41-73); Platelet Count 248 K/mm3 (150-400); RDW Coefficient Variation 14.2 % (11.7-14.2); RDW Standard Deviation 46.5 fL (35.1-46.3); Red Blood Cell Count 2.95 M/mm3 (3.80-5.20); White Blood Cell Count 12.05 K/mm3 (4.00-11.30)
--- NOTE | 2024-08-19 04:41 | NUR ---
SHIFT SUMMARY POD 1 L TKA REVISION PT ABLE TO REST ALL NIGHT. PAIN MANAGED PER EMAR. TOLERATING PO INTAKE, VOIDING. DRESSING OF ERICA AND GAUZE TO L KNEE IS C/D/I. PT TRANSFERRING WITH 1P ASST FWW AND GB. PT WORE CPAP ALL NIGHT, CONT BIOX ON. PT DENIES N/T AND ABLE TO WIGGLE TOES. NO OTHER CONCERNS AT THIS TIME, CALL LIGHT WITHIN REACH.
[2024-08-19 04:53] LABS: Calcium, Blood 8.5 mg/dL (8.5-10.1); Creatinine, Blood 1.12 mg/dL (0.40-1.00); Magnesium, Blood 1.9 mg/dL (1.6-2.4)
[2024-08-19 07:29] VITALS: BP 123/47
[2024-08-19] MEDS ORDERED: SulfASALazine 500 MG Tab PO SCH (09:00)
[2024-08-19] MEDS ORDERED: Aspirin 81 MG Chew PO SCH (09:00)
[2024-08-19] MEDS ORDERED: HydroCHLOROthiazide 25 mg Tab PO SCH (09:00)
[2024-08-19] MEDS ORDERED: Cholecalciferol 1000 Unit Tablet (=25MCG) PO SCH (09:00)
[2024-08-19] MEDS ORDERED: Folic Acid 1 MG TAB PO SCH (09:00)
[2024-08-19] MEDS ORDERED: Trimethoprim/Sulfamethoxazole DS Tab PO SCH (09:00)
[2024-08-19] MEDS ORDERED: oxyBUTYnin chloride 5 MG TAB PO SCH (09:00)
--- NOTE | 2024-08-19 10:19 | NUR ---
DRSG CHANGED DUE TO BREAKTHRU BLEEDING ABD x 2 & NEW ERICA WRAP RE-APPLIED PER DR STOVALL's INSTRUCTION.
[2024-08-19] MEDS ORDERED: OXYC5 PO (12:45)
[2024-08-19] MEDS ORDERED: Aspir 8181 MG PO (12:45)
--- NOTE | 2024-08-19 13:27 | NUR ---
PT HAS BEEN DOING HER CHAIR EXERCISES & AFTER AMBULATION IN HALLWAY, INCISION CHECKED; MODERATE AMOUNT OF SEROUS DRNG (APPROX 3/4 ABD PAD). SMALL OOZE WHEN KNEE IS BENT FROM TOP OF INCISION. ALLOWED TO DRAIN THEN 2 ABD PLACED & ERICA WRAPPED. WILL REPEAT THIS IN ~ 2 HRS & EVALUATE PLAN OF CARE.
--- NOTE | 2024-08-19 15:23 | NUR ---
PT HAS BEEN DOING HER CHAIR EXERCISES & AFTER AMBULATION IN HALLWAY AGAIN, INCISION CHECKED; SCANT AMOUNT OF SS DRNG (APPROX MASON SIZED). NO OOZE WHEN KNEE IS BENT. ORTHO COORDINATOR ASSESS INCISION WELL, BOTH IN AGREEMENT TO PLACE AQUACEL AT THIS TIME & APPROPRIATE FOR DC HOME. AQUACEL & ERICA WRAP APPLIED.
[2024-08-19 15:36] VITALS: BP 144/55
--- NOTE | 2024-08-19 15:55 | NUR ---
DISCHARGE CLEARED THERAPY THIS AM. PAIN WELL CONTROLLED. EATING, DRINKING, & VOIDING WELL. RASHIDA HAS CONTINUED TO SLOW T/O SHIFT. FAMILY & PT FEEL COMFORTABLE w/ DC. GILA & POLAR PACK SENT w/ PT. ESCORTED OUT VIA W/C.
== END 2024-08-19 16:00 | disposition home or self-care (01) | DRG 468 ==
LOC: ORSCMMR 11:00 → SURS 14:00
PROVIDERS: ADMIT Orthopaedic Surgery
PROC: 0SRW0J9 Replacement of Left Knee Joint, Tibial Surface with Synthetic Substitute, Cemented, Open Approach (ICD-10-PCS; 2024-08-18)
PROC: 0SPW0JZ Removal of Synthetic Substitute from Left Knee Joint, Tibial Surface, Open Approach (ICD-10-PCS; principal; 2024-08-18 14:00)
DX: M21.062 Valgus deformity, not elsewhere classified, left knee (principal); G47.30 Sleep apnea, unspecified; I10 Essential (primary) hypertension; E78.5 Hyperlipidemia, unspecified; J45.909 Unspecified asthma, uncomplicated; Z90.49 Acquired absence of other specified parts of digestive tract; Z98.890 Other specified postprocedural states; Z90.710 Acquired absence of both cervix and uterus; Z87.891 Personal history of nicotine dependence; Z79.899 Other long term (current) drug therapy; Z87.442 Personal history of urinary calculi; Z88.0 Allergy status to penicillin; Z88.1 Allergy status to other antibiotic agents
CPT/HCPCS: 36415; 73560-LT; 80048; 83735; 85025; 94762; 97110; 97116; 97162; A9270; C1713; C1776; J0171; J0690; J0735; J1885; J2250; J2310; J2371; J2795; J3010; J3370; J7050; J7120

== ENCOUNTER 2025-06-09 11:52 | Inpatient (IN) | payer MEDICARE ==
[~2025-06-09] VITALS: Ht 160 cm; Wt 102.1 kg
[~2025-06-09 11:52] MED LIST changes: -Acetaminophen 500 MG Tab PO SCH; +Aspir 8181 MG PO; -CeFAZolin Sodium 2,000 MG in NS 100 ML IV SCH; -Chlorhexidine Mouth Care 15 ML UDC MT SCH; -Lactated Ringer's 1,000 ML IV SCH; -OxyCODONE HCL 10 MG TABCR PO SCH; +Percocet 5-3251 EACH PO; -Ropivacaine 0.5% HCl/Pf 123.125 MG,EPINEPHrine HCL 0.25 MG,Ketorolac Tromethamine 15 MG... INFIL SCH; +SULFAMETHOXAZO1 EAC1 PO; -Vancomycin HCL 1,000 MG in NS 250 ML IV SCH; +[UNRECOGNIZED DRUG - CODE] PO
[2025-06-09] MEDS ORDERED: NS 1,000 ML IV SCH ×3 (13:35→18:00)
[2025-06-09] MEDS ORDERED: LORazepam 2 MG/ML 1ML Injection IV ONE (13:35)
[2025-06-09] MEDS ORDERED: Mag Sulfate 1 GM/D5% 100ML 100 ML IV ONE (13:40)
[2025-06-09 13:45] LABS: BASOPHILS ABSOLUTE AUTO 0.10 K/mm3 (0.00-0.23); BASOPHILS PERCENT AUTO 1 % (0-2); EOSINOPHILS ABSOLUTE AUTO 0.08 K/mm3 (0.00-0.68); EOSINOPHILS PERCENT AUTO 1 % (0-6); Hematocrit 33.4 % (33.0-51.0); Hemoglobin 10.7 g/dL (11.5-16.0); IMMATURE GRAN ABSOLUTE AUTO 0.18 K/mm3 (0.00-0.10); IMMATURE GRAN PERCENT AUTO 1 % (0-1); LYMPHOCYTES ABSOLUTE AUTO 1.38 K/mm3 (0.84-5.20); LYMPHOCYTES PERCENT AUTO 10 % (21-46); MONOCYTES ABSOLUTE AUTO 0.84 K/mm3 (0.16-1.47); MONOCYTES PERCENT AUTO 6 % (4-13); Mean Corpuscular HGB Conc 32.0 g/dL (31.5-36.5); Mean Corpuscular Volume 94 fL (80-100); NEUTROPHILS ABSOLUTE AUTO 10.76 K/mm3 (1.96-9.15); NEUTROPHILS PERCENT AUTO 81 % (41-73); NRBC ABSOLUTE 0.00 K/mm3 (0.00-0.02); NRBC Auto 0.0 /100 WBC (0.0-0.2); Platelet Count 245 K/mm3 (150-400); RDW Coefficient Variation 13.6 % (11.7-14.2); RDW Standard Deviation 47.1 fL (35.1-46.3)
[2025-06-09] MEDS ORDERED: Diazepam 5 MG / ML 2ML SYR IV ONE ×2 (13:45→15:20)
[2025-06-09 14:17] LABS: Alanine Aminotransfer (ALT/SGP 19.0 U/L (12-78); Albumin, Blood 3.6 g/dL (3.4-5.0); Albumin/Globulin Ratio 0.9 (0.8-1.8); Anion Gap 11.0 mmol/L (3-11); Aspartate Aminotrans (AST/SGOT 29.0 U/L (12-37); Bilirubin, Total 0.5 mg/dL (0.1-1.0); Blood Urea Nitrogen 19.0 mg/dL (8-24); CO2, Blood 22.0 mmol/L (21-32); Calcium, Blood 9.0 mg/dL (8.5-10.1); Chloride, Blood 107.0 mmol/L (98-108); Creatinine, Blood 0.79 mg/dL (0.40-1.00); Globulin, Blood 4.1 g/dL (2.2-4.0); Glucose, Blood 178.0 mg/dL (70-99); Magnesium, Blood 2.1 mg/dL (1.6-2.4); Potassium, Blood 3.4 mmol/L (3.5-5.5); Sodium, Blood 137.0 mmol/L (136-145); Total Protein, Blood 7.7 g/dL (6.4-8.2)
[2025-06-09 15:14] LABS: pH Blood Venous 7.30 (7.34-7.37)
[2025-06-09] MEDS ORDERED: Ondansetron HCl 2 MG / ML 2ML Vial IV ONE (17:25)
[2025-06-09 17:29] LABS: Source, Urine Clean Catch
[2025-06-09] MEDS ORDERED: Docusate Sodium/Senna 1 Tab PO PRN (17:45)
[2025-06-09 18:42] LABS: Bilirubin, Urine Neg (Neg); Color, Urine Yellow (P-Yellow); Glucose Qualitative, Urine 2+ (Neg); Ketones, Urine Neg (Neg); Leukocyte Esterase, Urine Neg (Neg); Protein, Urine 2+ (Neg); Specific Gravity, Urine 1.015 (1.003-1.022); Urobilinogen, Urine NORM (Normal)
[2025-06-09] MEDS ORDERED: Diazepam 5 MG / ML 2ML SYR IV PRN (19:00)
[2025-06-09] MEDS ORDERED: HydrALAZINE HCl 20 MG / ML 1ML Vial IV PRN (19:00)
[2025-06-09 20:50] VITALS: BP 174/74
[2025-06-09] MEDS ORDERED: Cetirizine HCl10 MG PO (21:20)
[2025-06-09] MEDS ORDERED: EUTHYROX25 MC1 PO (21:20)
[2025-06-09 22:52] VITALS: BP 155/64
[2025-06-10 03:33] VITALS: BP 140/59
--- NOTE | 2025-06-10 03:57 | NUR ---
PT ALERT AND ORIENTED X4 AND ADMITTED TO FLOOR DURING SHIFT. PATIENT ON 2 L NC, NONE AT BASELINE. PATIENT USES CPAP AT NIGHT. NS RUNNING. PATIENT HAS A PUREWICK IN PLACE DUE TO LIGHTHEADEDNESS AND SEVERE NAUSEA WHEN BEING MOVED. ENEMA WAS NOT DONE IN THE ED. RN OFFERED TO NURSE WHEN PATIENT ARRIVED ON UNIT BUT PT DECLINED DUE TO BECOMING NAUSEOUS WHEN BEING TURNED. PHENERGAN GIVEN FOR NAUSEA AND PROVIDED MILD RELIEF. PATIENT ABLE TO TURN SELF. BED IN LOW POSITION WITH THE WHEELS LOCKED. CALL LIGHT WITHIN REACH
[2025-06-10 05:41] LABS: BASOPHILS ABSOLUTE AUTO 0.05 K/mm3 (0.00-0.23); BASOPHILS PERCENT AUTO 1 % (0-2); EOSINOPHILS ABSOLUTE AUTO 0.07 K/mm3 (0.00-0.68); EOSINOPHILS PERCENT AUTO 1 % (0-6); Hematocrit 28.3 % (33.0-51.0); Hemoglobin 9.1 g/dL (11.5-16.0); IMMATURE GRAN ABSOLUTE AUTO 0.08 K/mm3 (0.00-0.10); IMMATURE GRAN PERCENT AUTO 1 % (0-1); LYMPHOCYTES ABSOLUTE AUTO 1.40 K/mm3 (0.84-5.20); LYMPHOCYTES PERCENT AUTO 16 % (21-46); MONOCYTES ABSOLUTE AUTO 0.70 K/mm3 (0.16-1.47); MONOCYTES PERCENT AUTO 8 % (4-13); Mean Corpuscular HGB Conc 32.2 g/dL (31.5-36.5); Mean Corpuscular Volume 93 fL (80-100); NEUTROPHILS ABSOLUTE AUTO 6.49 K/mm3 (1.96-9.15); NEUTROPHILS PERCENT AUTO 74 % (41-73); NRBC ABSOLUTE 0.00 K/mm3 (0.00-0.02); NRBC Auto 0.0 /100 WBC (0.0-0.2); Platelet Count 226 K/mm3 (150-400); RDW Coefficient Variation 13.6 % (11.7-14.2); RDW Standard Deviation 46.2 fL (35.1-46.3)
[2025-06-10 06:13] LABS: Anion Gap 8.0 mmol/L (3-11); Blood Urea Nitrogen 16.0 mg/dL (8-24); CO2, Blood 25.0 mmol/L (21-32); Calcium, Blood 8.2 mg/dL (8.5-10.1); Chloride, Blood 111.0 mmol/L (98-108); Creatinine, Blood 0.92 mg/dL (0.40-1.00); Glucose, Blood 95.0 mg/dL (70-99); Potassium, Blood 3.9 mmol/L (3.5-5.5); Sodium, Blood 140.0 mmol/L (136-145)
[2025-06-10 07:20] VITALS: BP 153/56
[2025-06-10] MEDS ORDERED: Enoxaparin 40 MG/0.4 ML SYR SC SCH (09:00)
[2025-06-10 10:50] VITALS: BP 125/53
[2025-06-10] MEDS ORDERED: DOCUZEN 8.6-501 EACH PO (14:09)
[2025-06-10] MEDS ORDERED: MIRALAX17 GM PO (14:10)
[2025-06-10] MEDS ORDERED: HYDRA25 PO (14:10)
[2025-06-10] MEDS ORDERED: HYDCHL25 PO (14:17)
--- NOTE | 2025-06-10 14:38 | NUR ---
PT DISCHARGED HOME. DISCHARGE INSTRUCTIONS REVIEWED WITH PT INCLUDING NEW MEDICATIONS AND DOSE CHANGES. BOTH IV'S REMOVED AND SITES APPEAR WNL. TELE REMOVED/CLEANED AND SENT BACK TO PCU BY RN. PT ABLE TO AMBULATE INDEPENDENTLY TO AND WHEELED DOWN TO DAUGHTER'S CAR BY METAPHYSICS TEACHER.
[2025-06-11] MEDS ORDERED: Folic Acid 1 MG TAB PO SCH (09:00)
[2025-06-11] MEDS ORDERED: Cholecalciferol 1000 Unit Tablet (=25MCG) PO SCH (09:00)
== END 2025-06-10 14:30 | disposition home or self-care (01) | DRG 641 ==
LOC: ER 11:52 → MEDS 17:35 → ERHOLD 17:35 → MEDS 20:32
PROVIDERS: Family Medicine; Student in an Organized Health Care Education/Training Program; ADMIT Student in an Organized Health Care Education/Training Program
DX: E86.0 Dehydration (principal); R11.2 Nausea with vomiting, unspecified; K59.00 Constipation, unspecified; E87.4 Mixed disorder of acid-base balance; D72.829 Elevated white blood cell count, unspecified; D64.9 Anemia, unspecified; I10 Essential (primary) hypertension; E78.5 Hyperlipidemia, unspecified; G47.30 Sleep apnea, unspecified; R94.31 Abnormal electrocardiogram [ECG] [EKG]; E87.6 Hypokalemia; E66.01 Morbid (severe) obesity due to excess calories; Z96.652 Presence of left artificial knee joint; Z88.0 Allergy status to penicillin; Z88.1 Allergy status to other antibiotic agents; Z79.82 Long term (current) use of aspirin; Z68.39 Body mass index [BMI] 39.0-39.9, adult; Z87.891 Personal history of nicotine dependence
CPT/HCPCS: 36415; 51701; 70450; 71046; 74177; 80048; 80053; 81001; 82803; 83690; 83735; 85025; 93005; 93010; 94760; 96361; 96372; 96374-59; 96375-59; 96376-59; 99285-25; A9270; G0378; J1650; J2405; J3360; J3475; J7030; Q9967